=== PATIENT | female | born 1970 | race Two or more races ===

== ENCOUNTER → 2024-12-31 | Outpatient (CLI) | payer MEDICARE, MEDICAID, SELFPAY ==
--- NOTE | 2024-12-31 | XR_ITS ---
Examination: Wrist, right 3 views Technique: Wrist AP, oblique, lateral 3 views Date and time of exam: December 31, 2024 1243 hours INDICATIONS: Right first digit pain right wrist pain one year. FINDINGS: Moderate osteopenia Mild narrowing radiocarpal navicular trapezium first carpometacarpal joints No erosive arthritis IMPRESSION: Mild narrowing radiocarpal, navicular trapezium, first carpometacarpal joints
--- NOTE | 2024-12-31 | XR_ITS ---
Examination: Hand, right 3 views Technique: Hand AP, oblique, lateral 3 views Date and time of exam: December 31, 2024 1243 hours INDICATIONS: Right wrist pain one year FINDINGS: Moderate osteopenia No acute fracture No erosive arthritis Mild osteoarthritis first carpometacarpal joint, interphalangeal joints second through fifth digits IMPRESSION: Mild osteoarthritis
== END | disposition home or self-care (01) ==
LOC: CDIM 11:45
PROVIDERS: PCP Physician Assistant
DX: M19.041 Primary osteoarthritis, right hand (principal); M25.831 Other specified joint disorders, right wrist
CPT/HCPCS: 73110; 73130